=== PATIENT | female | born 1970 | race Native Hawaiian/Other Pacific Islander ===

== ENCOUNTER 2018-06-07 09:24 | Outpatient (CLI) | payer OTHER ==
--- NOTE | 2018-06-08 08:51 | Mammography Report ---
Reason: BREAST CA SCREENING Procedure Date: 06/07/2018 Accession Number: [id number] / [id number] Procedure: MGN - Screening Mammo Dig Bilat CPT Code: FULL RESULT: EXAM: Screening Mammo Dig Bilat DATE: 06/07/2018 9:54 AM CLINICAL HISTORY: Screening encounter history of late childbearing. TECHNIQUE: Bilateral CC, laterally exaggerated CC, MLO views were obtained. COMPARISON: Baseline mammogram. FINDINGS: The breasts demonstrate scattered fibroglandular densities bilaterally. Seen on the right breast laterally exaggerated view only is a 7 mm isodense well-circumscribed nodule with no definite fatty hilum laterally in the axillary tail region 13 cm from the nipple. This requires additional evaluation by focused ultrasound to determine whether this represents a typically benign axillary lymph node. Also seen on the right laterally exaggerated view only is a hypodense partially obscured 6 mm asymmetry which is not identified on the CC and MLO views, medial breast 5.5 cm deep to the nipple. This finding requires additional spot views, 3-D imaging if possible and possibly ultrasound for clarification. No suspicious masses, clustered microcalcifications, or regions of architectural distortion are identified in the left breast. IMPRESSION: Incomplete examination RECOMMENDATION: Additional evaluation as above including focused breast ultrasound and spot views with magnification.. BIRADS CATEGORY 0: Incomplete examination STANDARD QUALIFYING STATEMENTS: 1. This examination was reviewed with the aid of Computer-Aided Detection (CAD). 2. A negative or benign imaging report should not delay biopsy if clinically suspicious findings are present. Consider surgical consultation if warrented. More than 5% of cancers are not identified by imaging. 3. Dense breasts may obscure an underlying neoplasm.
== END 2018-06-07 09:25 | disposition home or self-care (01) ==
LOC: DI.N 09:24
PROVIDERS: ATTEND Physician Assistant Medical
DX: Z12.31 Encounter for screening mammogram for malignant neoplasm of breast (principal); R92.8 Other abnormal and inconclusive findings on diagnostic imaging of breast
CPT/HCPCS: 77067

== ENCOUNTER 2018-06-15 13:29 | Outpatient (CLI) | payer OTHER ==
--- NOTE | 2018-06-15 16:15 | Mammography Report ---
Reason: ABN MAMMO - RT SPEC VIEWS Procedure Date: 06/15/2018 Accession Number: [id number] / [id number] Procedure: HARITHA - Diag Special Views Dig RT CPT Code: FULL RESULT: EXAM: Diag Special Views Dig RT DATE: 06/15/2018 2:17 PM CLINICAL HISTORY: Diagnostic mammogram. The patient is recalled from screening for 2 findings in the right breast. TECHNIQUE: Right breast CC, ML views are obtained. COMPARISON: 06/07/2018. FINDINGS: The right breast demonstrates scattered fibroglandular densities. The 7 mm well-circumscribed nodule in the lateral right breast, axillary tail region is identified as a lymph node with fatty hilum by focused breast ultrasound, supported by tomographic evaluation, typically benign finding. The previously seen hypodense partially obscured 6 mm asymmetry which was identified on one view only is clarified to be overlap of benign normal breast tissue with no suspicious architectural distortion, masses or calcifications identified in the region. IMPRESSION: Benign findings RECOMMENDATION: Recommend routine annual Screening mammography unless otherwise clinically indicated. BIRADS CATEGORY 2: Benign findings STANDARD QUALIFYING STATEMENTS: 1. This examination was not reviewed with the aid of Computer-Aided Detection (CAD). 2. A negative or benign imaging report should not delay biopsy if clinically suspicious findings are present. Consider surgical consultation if warrented. More than 5% of cancers are not identified by imaging. 3. Dense breasts may obscure an underlying neoplasm. 4. This examination was reviewed with the aid of 3D imaging (tomography).
== END 2018-06-15 13:30 | disposition home or self-care (01) ==
LOC: DI 13:29
PROVIDERS: ATTEND Physician Assistant Medical
DX: R92.8 Other abnormal and inconclusive findings on diagnostic imaging of breast (principal)
CPT/HCPCS: 76642

== ENCOUNTER 2018-06-29 20:56 | Emergency (ER) | payer OTHER ==
--- NOTE | 2018-06-29 21:11 | ED Physician Documentation ---
History of Present Illness - Stated complaint Stated Complaint: ALLERGIC REACTION/TONGUE SWELL - Chief complaint Chief Complaint: Allergic Rx - History obtained from History obtained from: Patient - History of Present Illness Timing: Enter time (18:30), Today Pain level now: 0 Improved by: nothing Worsened by: no apparent exacerbating factors - Additonal information Additional information: c/o swelling of tongue, lips since 6:30 this evening. She attributes the symptoms to shellfish she ate approximately 1 hour earlier, although she has had shellfish before without adverse reaction. Took 1 tablet benadryl at approximately 7 PM, but thinks this might have been an old/outdated medication Review of Systems Respiratory: reports: Reviewed and negative GI: reports: Reviewed and negative Skin: denies: Rash PD PAST MEDICAL HISTORY - Past Medical History Respiratory: Asthma - Past Surgical History /WELT SEWER: section - Present Medications Home Medications: Ambulatory Orders Medication Instructions Recorded Confirmed EPINEPHrine [Epinephrine] 0.3 mg IJ ONCE PRN #2 auto.injct 06/29/18 predniSONE [Prednisone] 40 mg PO DAILY 4 Days #8 tablet 06/29/18 - Allergies Allergies/Adverse Reactions: Allergies Allergy/AdvReac Type Severity Reaction Status Date / Time No Known Drug Allergies Allergy Verified 07/06/15 17:36 - Social History Does the pt smoke?: No Smoking Status: Never smoker Does the pt drink ETOH?: No - Immunizations Immunizations are current?: Yes PD ED PE NORMAL - Vitals Vital signs reviewed: Yes - General General: Alert and oriented X 3, No acute distress, Well developed/nourished - HEENT HEENT: Moist mucous membranes, Pharynx benign, Other (airway widely patent. No obvious swelling of lips/tongue/oropharynx. Her speech is mildly dysartrhic (c/w tongue swelling)) - Cardiac Cardiac: RRR, No murmur - Respiratory Respiratory: No respiratory distress, Clear bilaterally - Derm Derm: Normal color, Warm and dry, No rash Results - Vitals Vitals: Vital Signs - 24 hr 06/29/18 06/29/18 06/29/18 21:04 21:08 21:32 Temperature 36.1 C L Heart Rate 71 89 86 Respiratory 16 18 16 Rate Blood Pressure 138/92 H 143/92 H 131/85 H O2 Saturation 100 100 100 06/29/18 06/29/18 22:02 22:27 Temperature Heart Rate 69 75 Respiratory 17 Rate Blood Pressure 128/80 118/68 O2 Saturation 100 99 Oxygen O2 Source Room air PD MEDICAL DECISION MAKING - ED course Complexity details: re-evaluated patient, considered differential, d/w patient ED course: Patient felt symptoms had improved during ED stay. She has mild dysarthria on presentation (although no obvious swelling on exam) which improved on reevaluation prior to disposition. Departure - Departure Disposition: Home, Self Care Clinical Impression: Angioedema Qualifiers: Encounter type: initial encounter Qualified Code(s): T78.3XXA - Angioneurotic edema, initial encounter Condition: Good Instructions: ED Angioedema Follow-Up: Ruth Arce PA-C [Primary Care Provider] - (Call in the morning to arrange for next available appointment) Prescriptions: EPINEPHrine [Epinephrine] 0.3 mg IJ ONCE PRN #2 auto.injct PRN Reason: Anaphylaxis predniSONE [Prednisone] 40 mg PO DAILY 4 Days #8 tablet Discharge Date/Time: 06/29/18 22:36
[2018-06-29] MEDS ORDERED: diphenhydrAMINE INJ 50 MG/ML VIAL IM STA (21:24)
[2018-06-29] MEDS ORDERED: predniSONE 20 MG TABLET PO STA (21:24)
[2018-06-29 22:28] VITALS: BP 118/68
== END 2018-06-29 22:36 | disposition home or self-care (01) ==
LOC: ED 20:56
DX: T78.3XXA Angioneurotic edema, initial encounter (principal); T78.1XXA Other adverse food reactions, not elsewhere classified, initial encounter
CPT/HCPCS: 96372; 99283; J1200; J7512

== ENCOUNTER 2018-11-15 14:48 | Outpatient (CLI) | payer OTHER ==
--- NOTE | 2018-11-16 14:01 | Ultrasound Report ---
Reason: MENORRHAGIA Procedure Date: 11/15/2018 Accession Number: [id number] / [id number] Procedure: US - Pelvic w/Transvaginal CPT Code: FULL RESULT: EXAM: PELVIC ULTRASOUND EXAM DATE: 11/15/2018 03:42 PM. CLINICAL HISTORY: Menorrhagia. COMPARISON: None. TECHNIQUE: Realtime transabdominal pelvic scan performed to identify the uterus and adnexa and as an overview of other pelvic structures, followed by transvaginal scan to provide greater detail of the uterus and adnexa, with static image documentation. FINDINGS: Uterus: 7.9 x 3.3 x 4.6 cm, volume 63 cc. Anteverted position. Normal overall size and echotexture. Masses: None. Endometrium: 7 mm. Normal. Cervix: Unremarkable. Right Ovary: 2.0 x 1.3 x 2.4 cm, volume 1.4 cc. Normal echotexture and blood flow. A small simple cyst measures 1.2 cm. Left Ovary: 3.5 x 2.5 x 3.5 cm, volume 16 cc. A complex cystic structure containing nonvascular internal septations and other echogenic material measures 2.5 x 2.3 x 2.0 cm. A simple cyst is also identified measuring 1.2 cm. Free Fluid: None. Other: None. IMPRESSION: 1. Complex left ovarian 2.5 cm cystic lesion likely represents hemorrhagic cyst. 2. Endometrium within normal limits. RADIA
== END 2018-11-15 14:49 | disposition home or self-care (01) ==
LOC: DI 14:48
PROVIDERS: ATTEND Obstetrics & Gynecology
DX: N92.0 Excessive and frequent menstruation with regular cycle (principal); N83.202 Unspecified ovarian cyst, left side
CPT/HCPCS: 76830; 76856

== ENCOUNTER 2019-01-09 14:47 | Outpatient (CLI) | payer OTHER ==
[2019-01-09 15:07] LABS: BASOPHILS % (AUTO) 0.4 %; EOSINOPHILS # (AUTO) 0.2 10^3/uL (0.0-0.7); EOSINOPHILS % (AUTO) 2.7 %; HGB - HEMOGLOBIN 11.4 g/dL (12.0-16.0); LYMPHOCYTES % (AUTO) 37.2 %; MEAN CORPUSCULAR HEMOGLOBIN 26.4 pg (27.0-31.0); MEAN CORPUSCULAR VOLUME 85.2 fL (81.0-99.0); MEAN PLATELET VOLUME 8.7 fL (7.9-10.8); MONOCYTES # (AUTO) 0.5 10^3/uL (0.0-1.0); MONOCYTES % (AUTO) 6.4 %; NEUTROPHILS # (AUTO) 4.3 10^3/uL (1.5-6.6); NEUTROPHILS % (AUTO) 52.7 %; PLT - PLATELET COUNT 320 10^3/uL (130-450); RED BLOOD COUNT 4.32 10^6/uL (4.20-5.40); RED CELL DISTRIBUTION WIDTH 14.1 % (12.0-15.0); WHITE BLOOD COUNT 8.1 x10^3/uL (4.8-10.8)
== END 2019-01-09 14:48 | disposition home or self-care (01) ==
LOC: LAB 14:47
PROVIDERS: ATTEND Obstetrics & Gynecology
DX: Z01.812 Encounter for preprocedural laboratory examination (principal); N92.0 Excessive and frequent menstruation with regular cycle
CPT/HCPCS: 36415; 85025

== ENCOUNTER 2019-01-11 09:50 | Day surgery (SDC) | payer OTHER ==
[2019-01-11] MEDS ORDERED: LACTATED RINGERS 1,000 ML IV ONE (10:00)
[2019-01-11 10:35] LABS: HCG UR QUAL NEGATIVE
[2019-01-11] MEDS ORDERED: LIDOCAINE-MPF 1% 30 ML VIAL ONE (11:15)
--- NOTE | 2019-01-11 11:28 | ANESTHESIA ---
Pre-Anesthesia VS, & Labs - Diagnosis Menorrhagia - Procedure Diagnostic laparoscopy, thermal ablation Vital Signs: Temp Pulse Resp BP Pulse Ox 36.1 C L 68 12 120/71 100 01/11/19 10:00 01/11/19 10:00 01/11/19 10:00 01/11/19 10:00 01/11/19 10:00 Height 5 ft Weight (kg) 87.5 kg Body Mass Index 34.0 - Is Patient ?: No - Lab Results Lab results reviewed: Yes Home Medications and Allergies Home Medications: Ambulatory Orders Albuterol Sulfate [Proair Hfa Inhaler] 1 - 2 puffs INH Q4H PRN 01/09/19 Ibuprofen [Motrin] 600 mg PO Q6H PRN 01/09/19 Multivitamin [Daily Multiple Vitamin] 1 each PO DAILY 01/09/19 Albuterol Sulfate [Proair Hfa Inhaler] 1 - 2 puffs INH Q4H PRN 01/09/19 Ibuprofen [Motrin] 600 mg PO Q6H PRN 01/09/19 Multivitamin [Daily Multiple Vitamin] 1 each PO DAILY 01/09/19 Allergies/Adverse Reactions: Allergies Allergy/AdvReac Type Severity Reaction Status Date / Time No Known Drug Allergies Allergy Verified 07/06/15 17:36 Anes History & Medical History - Anesthetic History Anesthesia Complications: reports: No previous complications Family history of Anesthesia Complications: Denies Family history of Malignant Hyperthermia: Denies - Medical History Cardiovascular: reports: None Pulmonary: reports: Asthma Gastrointestinal: reports: GERD Urinary: reports: None Neuro: reports: None Musculoskeletal: reports: Other Endocrine/Autoimmune: reports: None Blood Disorders: reports: None Skin: reports: None Smoking Status: Never smoker Psychosocial: reports: No issues indicated - Surgical History Gynecologic: section Exam General: Alert, Oriented x3, Cooperative Dental: WNL Mouth Opening: Greater than 4 Fingerbreadths Neck Mobility: Normal Mallampati classification: I Thyromental Distance: greater than 6 cm Respiratory: Lungs clear Cardiovascular: Regular rate Mental/Cognitive Status: Alert/Oriented X3 Cognitive Status: Within normal limits Plan Anesthesia Type: General Consent for Procedure(s) Verified and Reviewed: Yes Code Status: Attempt Resuscitation ASA classification: 2-Mild systemic disease Is this case an emergency?: No
[2019-01-11] MEDS ORDERED: ONDANSETRON 4 MG/2 ML VIAL IVP PRN (12:34)
[2019-01-11] MEDS ORDERED: HYDROcod/ACETAM 5/325 MG TABLET PO PRN (12:34)
[2019-01-11] MEDS ORDERED: HYDROmorphone 0.5 MG/0.5 ML SYRINGE IVP PRN (12:34)
[2019-01-11] MEDS ORDERED: CYCLOBENZAPRINE 10 MG TABLET PO ONE (12:37)
[2019-01-11 13:27] VITALS: BP 116/83
--- NOTE | 2019-01-11 16:14 | OPERATIVE REPORT ---
DATE OF SERVICE: 01/11/2019 Physician: Kel Edwards DO PREOPERATIVE DIAGNOSIS: Menorrhagia. POSTOPERATIVE DIAGNOSIS: Menorrhagia. PROCEDURE PERFORMED: Endometrial thermoablation. SURGICAL FINDINGS: The uterus sounded to a depth of 9 cm. The uterine width was 2.5 cm, and the cav ity length was 6 cm. PROCEDURE: Patient was taken to the operative suite, placed on the surgical table in supine position . Under general anesthesia, she was then prepped and draped in the usual fashion. A timeout then to ok place. Once timeout was completed, a weighted speculum was placed in the vaginal vault and the ce rvix visualized. A single-tooth tenaculum was placed onto the anterior lip of the cervix. The uteru s was then sounded to a depth of 9 cm. The cervix was dilated to 8 mm. The NovaSure device was now extended into the endometrial cavity and the array was deployed. Again, the cavity width noted when the array deployed was 2.5 cm. The cavity length had already been measured at 6 cm. At this point i n time, the integrity test took place and the cavity passed this test. The NovaSure device was now e nabled. It then cycled for 1 minute 34 seconds at 83 gold. Once the cycle was completed, the array was again brought back into the NovaSure device and the NovaSure device was easily removed. The sin gle-tooth tenaculum was removed from the anterior lip of the cervix. Tenaculum sites did show some o ozing. These were rendered hemostatic with direct pressure. Once hemostasis had been assured, the s peculum was removed from the vaginal vault. The vagina was then cleared of all blood, clots and debr is. Patient was then taken to recovery room in stable condition. TD: 01/11/2019 12:57
== END 2019-01-11 09:51 | disposition home or self-care (01) ==
LOC: SDS 09:50
PROVIDERS: ATTEND Obstetrics & Gynecology
PROC: 0U5B7ZZ Destruction of Endometrium, Via Natural or Artificial Opening (ICD-10-PCS; principal; 2019-01-11 10:45)
DX: N92.0 Excessive and frequent menstruation with regular cycle (principal)
CPT/HCPCS: 58353; 81025; A9270; J7120

== ENCOUNTER 2020-12-12 17:38 | Outpatient (CLI) | payer OTHER | END 2020-12-12 17:39 | disposition home or self-care (01) | LOC: COV 17:38 | PROVIDERS: ATTEND Family Medicine | DX: R05 Cough (principal); R06.02 Shortness of breath; M79.10 Myalgia, unspecified site; R53.83 Other fatigue; R07.0 Pain in throat; R19.7 Diarrhea, unspecified; R43.9 Unspecified disturbances of smell and taste; R09.81 Nasal congestion; J34.89 Other specified disorders of nose and nasal sinuses; Z20.822 Contact with and (suspected) exposure to COVID-19 ==

== ENCOUNTER 2021-02-07 14:45 | Outpatient (CLI) | payer OTHER ==
--- NOTE | 2021-02-10 10:14 | Mammography Report ---
BILATERAL DIGITAL SCREENING MAMMOGRAM 3D/2D: 02/07/2021 CLINICAL: Routine screening. Comparison is made to exams dated: 06/15/2018 mammogram and 06/07/2018 mammogram - [facility]. The tissue of both breasts is heterogeneously dense. This may lower the sensitivity of ma mmography. No significant masses, calcifications, or other findings are seen in either breast. There has been no significant interval change. IMPRESSION: NEGATIVE There is no mammographic evidence of malignancy. A 1 year screening mammogram is recommended. This exam was interpreted at Station ID: [id number]. NOTE: For mammograms, a report in lay terms will be sent to the patient. Approximately 15% of breast malignancies will not be visualized mammographically. In the management of a palpable breast mass, a negative mammogram must not discourage biopsy of a clinically suspicious lesion. Electronically Signed By: Gino Talbot M.D. slc/penrad:02/07/2021 17:01:09 ACR BI-RADS Category 1: Negative 3341F PARENCHYMAL PATTERN: (D) - The breast(s) demonstrate(s) heterogeneously dense fibroglandular parenchy ma. BI-RADS CATEGORY: (1) - 1 RECOMMENDATION: (ANNUAL) - Recommend routine annual screening mammography. [id number] 1 year screening LATERALITY: (B)
== END 2021-02-07 14:46 | disposition home or self-care (01) ==
LOC: DI 14:45
PROVIDERS: ATTEND Physician Assistant
DX: Z12.39 Encounter for other screening for malignant neoplasm of breast (principal)

== ENCOUNTER 2022-08-25 15:02 | Outpatient (CLI) | payer OTHER ==
--- NOTE | 2022-08-26 10:53 | Mammography Report ---
BILATERAL DIGITAL SCREENING MAMMOGRAM 3D/2D: 08/25/2022 CLINICAL: Routine screening. Comparison is made to exams dated: 02/07/2021 mammogram, 06/15/2018 ultrasound, 06/15/2018 mammogram, and 06/07/2018 mammogram - [facility]. Both breasts are heterogeneously dense, which may obscure small masses (category c / 51-75% glandular tissue). No significant masses, calcifications, or other findings are seen in either breast. There has been no significant interval change. IMPRESSION: NEGATIVE There is no mammographic evidence of malignancy. A 1 year screening mammogram is recommended. Based on Tyrer-Cuzick model (a risk assessment model), the patient's lifetime risk is 20.3% and her 1 0 year risk is 4.8%. If a patient has an elevated risk, a more comprehensive evaluation should be con sidered and/or a referral to a genetic counselor. The [place] [employer], [place] [employer], and NCCN Guidelines advise the consideration of Breast MRI as an adjunct to screening mammog kris in patients whose "Lifetime risk to develop breast cancer" is 20% or higher. This exam was interpreted at Station ID: [id number]. NOTE: For mammograms, a report in lay terms will be sent to the patient. Approximately 15% of breast malignancies will not be visualized mammographically. In the management of a palpable breast mass, a negative mammogram must not discourage biopsy of a clinically suspicious lesion. Electronically Signed By: Masood hunt/narda:08/26/2022 08:07:38 letter sent: No_Letter ACR BI-RADS Category 1: Negative 3341F PARENCHYMAL PATTERN: (D) - The breast(s) demonstrate(s) heterogeneously dense fibroglandular parmilagrosy ma. BI-RADS CATEGORY: (1) - 1 Mammogram [id number] 1 year screening LATERALITY: (B)
== END 2022-08-25 15:03 | disposition home or self-care (01) ==
LOC: DI.N 15:02
DX: Z12.31 Encounter for screening mammogram for malignant neoplasm of breast (principal)